=== PATIENT | male | born 1990 | race Caucasian/White ===

== ENCOUNTER 2022-07-31 18:21 | Emergency (ER) | payer SELFPAY ==
[2022-07-31 18:46] VITALS: BP 166/71; PULSE 89; RESP 20; TEMP 98.1; BMI 40.0
[2022-07-31] MEDS ORDERED: PIPERACILLIN/TAZOB 4.5 GM 4.5 GM in DEXTROSE 5%-WATER 100 ML IVPB ONE (19:38)
[2022-07-31] MEDS ORDERED: PIPERACILLIN/TAZOBACTAM 4.5 GM VIAL IVPB ONE (20:25)
[2022-07-31] MEDS ORDERED: DIPHTH,PERTUSS(ACELL),TET 0.5 ML DISP.SYRIN IM ONE ×2 (20:36→20:44)
== END 2022-07-31 21:13 | disposition left against medical advice (07) ==
LOC: FER 18:21
PROC: 3E03329 Introduction of Other Anti-infective into Peripheral Vein, Percutaneous Approach (ICD-10-PCS; principal; 2022-07-31)
PROC: 3E0234Z Introduction of Serum, Toxoid and Vaccine into Muscle, Percutaneous Approach (ICD-10-PCS; 2022-07-31)
DX: S61.432A Puncture wound without foreign body of left hand, initial encounter (principal); M79.641 Pain in right hand; W45.8XXA Other foreign body or object entering through skin, initial encounter
CPT/HCPCS: 73110-TC-LT-FY; 73130-TC-LT-FY; 90715; 99284-25